=== PATIENT | male | born 1945 | race Caucasian/White ===

== ENCOUNTER 2017-08-09 07:42 | Outpatient (CLI) | payer MEDICARE, OTHER ==
[2017-08-09 08:35] LABS: eGFR (African) > 60; eGFR (Non-African) > 60
== END 2017-08-09 07:43 ==
LOC: LAB 07:42
PROVIDERS: ATTEND Internal Medicine
DX: E11.9 Type 2 diabetes mellitus without complications (principal); E03.9 Hypothyroidism, unspecified
CPT/HCPCS: 36415; 80053; 83036; 84439; 84443

== ENCOUNTER 2017-12-15 08:21 | Outpatient (CLI) | payer MEDICARE, OTHER ==
[2017-12-15 10:35] LABS: eGFR (African) > 60; eGFR (Non-African) > 60
== END 2017-12-15 08:22 ==
LOC: LAB 08:21
PROVIDERS: ATTEND Internal Medicine
DX: E11.9 Type 2 diabetes mellitus without complications (principal)
CPT/HCPCS: 36415; 80053; 83036

== ENCOUNTER 2018-05-17 08:36 | Outpatient (CLI) | payer MEDICARE, OTHER ==
[2018-05-17 09:23] LABS: eGFR (Non-African) 57
== END 2018-05-17 08:38 ==
LOC: LAB 08:36
PROVIDERS: ATTEND Internal Medicine
DX: I10 Essential (primary) hypertension (principal); E78.00 Pure hypercholesterolemia, unspecified; E11.9 Type 2 diabetes mellitus without complications; E03.9 Hypothyroidism, unspecified; Z12.5 Encounter for screening for malignant neoplasm of prostate
CPT/HCPCS: 36415; 80053; 80061; 83036; 84153; 84439; 84443

== ENCOUNTER 2019-02-01 09:18 | Outpatient (CLI) | payer MEDICARE, OTHER | END 2019-02-01 09:25 | LOC: LAB 09:18 | PROVIDERS: ATTEND Internal Medicine | DX: I80.10 Phlebitis and thrombophlebitis of unspecified femoral vein (principal) | CPT/HCPCS: 36415; 85610 ==